=== PATIENT | female | born 1970 | race Hispanic/Latino ===

== ENCOUNTER 2019-04-06 10:42 | Emergency (ER) | payer SELFPAY ==
[~2019-04-06] VITALS: Ht 170.2 cm; Wt 111.1 kg
--- OUTSIDE RECORDS SUMMARY | 2019-04-06 10:44 | XMS REPORT | Continuity of Care Document ---
Author Author [facility] Organization [facility] Address Unknown Phone Unavailable Care Team Providers Care Brain Wave Technician Name Role Phone [facility] Information Bio[employer] Unavailable Unavailable Problems No Data Provided for This Section Medications No Data Provided for This Section Allergies, Adverse Reactions, Alerts No Known Medication Allergies Immunizations No Data Provided for This Section Results No Data Provided for This Section Pathology Reports No Data Provided for This Section Diagnostic Reports No Data Provided for This Section Consultation Notes No Data Provided for This Section Discharge Summaries No Data Provided for This Section History and Physicals No Data Provided for This Section Vital Signs No Data Provided for This Section Encounters Location Location Details Encounter Type Encounter Number Reason For Visit Attending Provider ADM Date DC Date Status Source Outpatient [id number] Thierno Sims Jr 01/27/2019 Active [facility] Procedures No Data Provided for This Section Assessment and Plan No Data Provided for This Section Plan of Care No Data Provided for This Section Social History No Data Provided for This Section Family History No Data Provided for This Section Advance Directives No Data Provided for This Section Functional Status No Data Provided for This Section
[2019-04-06 11:04] VITALS: BP 106/67
[2019-04-06] MEDS ORDERED: IBUPROFEN 400 MG TAB ONE (11:09)
[2019-04-06] MEDS ORDERED: CLINDAMYCIN HCL 150 MG CAP ONE (11:09)
[2019-04-06] MEDS ORDERED: IBUPROFEN 400 MG TAB PO ONE (11:15)
[2019-04-06] MEDS ORDERED: CLINDAMYCIN HCL 150 MG CAP PO ONE (11:15)
== END 2019-04-06 11:11 | disposition home or self-care (01) ==
LOC: ER 10:42
DX: K08.89 Other specified disorders of teeth and supporting structures (principal); R68.84 Jaw pain
CPT/HCPCS: 99283